=== PATIENT | male | born 1985 | race Caucasian/White ===

== ENCOUNTER 2020-09-26 10:32 | Emergency (ER) | payer OTHER ==
[2020-09-26] MEDS ORDERED: BACTRIM DS TAB1 EACH PO (13:41)
== END 2020-09-26 13:49 | disposition home or self-care (01) ==
LOC: FER 10:32
DX: L02.512 Cutaneous abscess of left hand (principal); L03.114 Cellulitis of left upper limb; F17.200 Nicotine dependence, unspecified, uncomplicated; F20.9 Schizophrenia, unspecified; Z79.899 Other long term (current) drug therapy